=== PATIENT | female | born 1990 | race Caucasian/White ===

== ENCOUNTER 2018-06-20 10:26 | Inpatient (IN) | payer MEDICAID ==
[2018-06-20] MEDS ORDERED: AMPICILLIN 2 GM/NS (PMX) 100 ML (10:34)
[2018-06-20] MEDS ORDERED: LIDOCAINE 1% (MPF) 30 ML INJ (10:35)
[2018-06-20] MEDS ORDERED: OXYTOCIN 30 UNITS/LR 500 ML IV ×3 (10:35→11:00)
[2018-06-20] MEDS ORDERED: LACTATED RINGER'S 1,000 ML IV (10:36)
[2018-06-20] MEDS: LACTATED RINGER'S 1,000 ML IV (10:46)
[2018-06-20] MEDS: AMPICILLIN 2 GM/NS (PMX) 100 ML IV (10:46)
[2018-06-20] MEDS ORDERED: MISOPROSTOL 200 MCG TAB PR (11:00)
[2018-06-20] MEDS ORDERED: OXYCODONE/ASPIRIN (4.88/325) TAB PO ×3 (11:00→17:00)
[2018-06-20] MEDS ORDERED: IBUPROFEN 600 MG TAB PO (11:00)
[2018-06-20] MEDS ORDERED: OXYCODONE/ACETAMINOPHEN (5/325) TAB PO (11:00)
[2018-06-20] MEDS ORDERED: BUTORPHANOL 1 MG INJ IV (11:00)
[2018-06-20] MEDS ORDERED: BUTORPHANOL 2 MG INJ IV (11:00)
[2018-06-20] MEDS ORDERED: FENTAnyl 50 MCG/ML VIAL IV (11:00)
[2018-06-20] MEDS ORDERED: CARBOPROST 250 MCG INJ IM (11:00)
[2018-06-20 11:02] LABS: ADD MAN DIFF? NO
[2018-06-20 11:11] LABS: BASOPHILS % 0.2 % (0.0-2.0); EOSINOPHILS % 0.2 % (0.0-7.0); HEMATOCRIT 38.7 % (37.0-47.0); HEMOGLOBIN 13.1 g/dl (12.0-16.0); LYMPHOCYTES # 1.7 10^3/ul (0.8-2.9); LYMPHOCYTES % 14.6 % (15.0-51.0); MEAN CORPUSCULAR HEMOGLOBIN 30.1 pg (29.0-33.0); MEAN CORPUSCULAR HGB CONC 33.9 g/dl (32.0-37.0); MEAN PLATELET VOLUME 11.3 fl (7.4-10.4); MONOCYTE # 0.5 10^3/ul (0.3-0.9); MONOCYTES % 4.1 % (0.0-11.0); NEUTROPHIL # 9.1 10^3/ul (1.6-7.5); NEUTROPHILS % 80.4 % (39.0-77.0); PLATELET COUNT 160 10^3/UL (140-415); RED BLOOD COUNT 4.35 10^6/ul (4.20-5.40); RED CELL DISTRIBUTION WIDTH 13.9 % (11.5-14.5)
[2018-06-20 11:11] LABS: WHITE BLOOD COUNT 11.3 10^3/ul (4.8-10.8)
[2018-06-20 11:25] LABS: ALANINE AMINOTRANSFERASE 12 IU/L (13-69); ALBUMIN 3.9 g/dl (3.3-4.9); ALBUMIN/GLOBULIN RATIO 1.11; ALKALINE PHOSPHATASE 211 IU/L (42-121); ANION GAP 12 (5-13); ASPARTATE AMINO TRANSFERASE 20 IU/L (15-46); BILIRUBIN,INDIRECT 0.2 mg/dl (0-1.1); BILIRUBIN,TOTAL 0.2 mg/dl (0.2-1.3); BLOOD UREA NITROGEN 9 mg/dl (7-20); CALCIUM 9.3 mg/dl (8.4-10.2); CARBON DIOXIDE 21 mmol/L (21-31); CHLORIDE 106 mmol/L (97-110); CREATININE 0.59 mg/dl (0.44-1.00); Estimated GFR > 60 mL/min (>60); GLUCOSE 86 mg/dl (70-220); POTASSIUM 4.2 mmol/L (3.5-5.1); SODIUM 139 mmol/L (135-144); TOTAL PROTEIN 7.4 g/dl (6.1-8.1)
[2018-06-20] MEDS: LIDOCAINE 1% (MPF) 30 ML INJ INJ (11:44)
[2018-06-20] MEDS: OXYTOCIN 30 UNITS/LR 500 ML IV ×3 (11:45→16:59)
[2018-06-20] MEDS: METHYLERGONOVINE 0.2 MG INJ IM (12:23)
[2018-06-20 12:32] LABS: HEPATITIS B SURFACE ANTIGEN NEGATIVE (NEGATIVE)
[2018-06-20] MEDS ORDERED: AMPICILLIN 1 GM/NS (PMX) 50 ML IV (15:00)
[2018-06-20 15:05] LABS: RAPID PLASMA REAGIN NONREACTIVE (NR)
[2018-06-20] MEDS ORDERED: HYDROCODONE/APAP (5/325) TAB PO ×2 (17:00)
[2018-06-20] MEDS ORDERED: ACETAMINOPHEN 325 MG TAB PO (17:00)
[2018-06-20] MEDS ORDERED: ONDANSETRON 4 MG INJ IV (17:00)
[2018-06-20] MEDS: LANOLIN HPA 1 PKT TOP (17:45)
[2018-06-20] MEDS: IBUPROFEN 600 MG TAB PO ×2 (17:45→23:49)
[2018-06-20] MEDS: WITCH HAZEL/GLYCERIN PAD PR (17:45)
[2018-06-20] MEDS: BENZOCAINE 20% 56 ML SPRAY TOP (17:45)
[2018-06-20] MEDS: SENNA/DOCUSATE NA (8.6MG/50MG) TAB PO (21:08)
[2018-06-21] MEDS: IBUPROFEN 600 MG TAB PO ×3 (05:37→17:20)
[2018-06-21 08:11] LABS: ADD MAN DIFF? NO
[2018-06-21 08:12] LABS: WHITE BLOOD COUNT 9.4 10^3/ul (4.8-10.8)
[2018-06-21 08:12] LABS: BASOPHILS % 0.4 % (0.0-2.0); EOSINOPHILS # 0.1 10^3/ul (0.0-0.5); EOSINOPHILS % 0.7 % (0.0-7.0); HEMATOCRIT 31.8 % (37.0-47.0); HEMOGLOBIN 10.8 g/dl (12.0-16.0); LYMPHOCYTES # 2.5 10^3/ul (0.8-2.9); LYMPHOCYTES % 26.4 % (15.0-51.0); MEAN CORPUSCULAR HEMOGLOBIN 30.4 pg (29.0-33.0); MEAN CORPUSCULAR VOLUME 89.6 fl (82.0-101.0); MEAN PLATELET VOLUME 10.8 fl (7.4-10.4); MONOCYTE # 0.6 10^3/ul (0.3-0.9); MONOCYTES % 5.9 % (0.0-11.0); NEUTROPHIL # 6.2 10^3/ul (1.6-7.5); NEUTROPHILS % 66.3 % (39.0-77.0); PLATELET COUNT 146 10^3/UL (140-415); RED BLOOD COUNT 3.55 10^6/ul (4.20-5.40); RED CELL DISTRIBUTION WIDTH 13.8 % (11.5-14.5)
[2018-06-21] MEDS: SENNA/DOCUSATE NA (8.6MG/50MG) TAB PO ×2 (08:48→21:25)
[2018-06-22] MEDS: IBUPROFEN 600 MG TAB PO ×3 (00:45→12:00)
[2018-06-22] MEDS: MEASLES,MUMPS,RUBELLA VACCINE INJ SC* (09:00)
[2018-06-22] MEDS: SENNA/DOCUSATE NA (8.6MG/50MG) TAB PO (10:10)
[2018-06-24 09:02] LABS: RUBELLA ANTIBODY - IGG 3.15 index
[2018-06-25 09:06] LABS: RUBELLA ANTIBODY - IGM <20.00 AU/mL
== END 2018-06-22 13:35 | disposition home or self-care (01) | DRG 807 ==
LOC: L-D 10:26 → PP1 16:51
PROC: 10E0XZZ Delivery of Products of Conception, External Approach (ICD-10-PCS; principal; 2018-06-20)
PROC: 4A1HXCZ Monitoring of Products of Conception, Cardiac Rate, External Approach (ICD-10-PCS; 2018-06-20)
PROC: 3E0234Z Introduction of Serum, Toxoid and Vaccine into Muscle, Percutaneous Approach (ICD-10-PCS; 2018-06-21)
DX: O62.3 Precipitate labor (principal); Z37.0 Single live birth; O70.0 First degree perineal laceration during delivery; Z3A.39 39 weeks gestation of pregnancy; Z23 Encounter for immunization
CPT/HCPCS: 80053; 85025; 86592; 86762; 86850; 86900; 86901; 87040; 87340; 90686